=== PATIENT | male | born 1945 | race Caucasian/White ===

== ENCOUNTER → 2023-02-02 10:31 | Outpatient (BNVA) | payer MEDICARE, OTHER, SELFPAY | PROVIDERS: Visit Provider Nurse Practitioner | DX: R30.0 Dysuria (principal); N39.0 Urinary tract infection, site not specified | CPT/HCPCS: 80053; 81003; 85025; 87077; 87086; 87184 ==

== ENCOUNTER 2023-04-05 08:49 | Day surgery (SDC) | payer MEDICARE, OTHER, SELFPAY ==
[2023-04-05] VITALS (11 sets, daily range): BP systolic 119–168; BP diastolic 66–94; PULSE 55–78; RESP 16–20; TEMP 36.1–36.5; O2SAT 95–100; BMI 21.1
--- NOTE | 2023-04-05 09:12 | W.ED.GENADLT ---
HPI - General Adult General: Chief complaint: General Medical Stated complaint: having trouble swallowing Time Seen by Provider: 04/05/23 08:57 Source: patient Mode of arrival: ambulatory History of Present Illness: 77-year-old male who presents to the emergency room complaint difficulty swallowing. He has a history of dysphagia and from discussing what sounds like he may have had esophageal impactions in the past. He states that 3 days ago he was eating some deer meat and had some epigastric discomfort and pain he cannot eat or drink anything since then. Onset (ago): day(s) (3) Relieving factors: none Exacerbating factors: none Associated symptoms: Reports decreased appetite, malaise, nausea and vomiting; Deny chest pain, confusion, cough, diaphoresis, dyspnea, fevers/chills, headache(s), rash, palpitations, seizures, short of breath, syncope or weakness Treatments prior to arrival: none Review of Systems Const: Reports: fatigue and malaise; Denies: fever(s), chills or diaphoresis ENMT: Reports: odynophagia Card: Denies: chest pain, palpitations or syncope Resp: Denies: dyspnea GI: Reports: abdominal pain, nausea and vomiting; Denies: hematemesis or coffee ground emesis : Denies: dysuria, urinary frequency or urinary urgency Musc: Denies: neck pain or back pain Skin/Breast: Denies: rash Neuro: Denies: headache(s) or confusion PFS ED PFSH: Medical History Chronic pain of right knee Surgical History History of cataract surgery both eyes October 2022 History of cholecystectomy Family History Other Family history not known due to adoption Denies family history of Diabetes Dementia Psychiatric illness Cancer Hypertension Social History (Updated 02/02/23 @ 10:53 by GIOVANNY Walton) Smoking and tobacco/nicotine status: former use of tobacco/nicotine Second hand smoke exposure: No Alcohol intake: never Substance/Drug Use: never Adopted: Yes Caregiver/support person: No Lives independently: Yes Household members: spouse Housing: House Marital status: Number of children: 2 service: No Current occupational status: retired Pets and animals: Yes Pets & animals: farm animals Do you think of yourself as: Straight/Heterosexual Current gender identity: Male Physical Exam Const: COMMON NORMALS: no acute distress GENERAL APPEARANCE: cooperative and comfortable ORIENTATION/CONSCIOUSNESS: Yes awake, Yes oriented to person, Yes oriented to place and Yes oriented to time HENMT: COMMON NORMALS: normocephalic, atraumatic and hearing grossly normal bilaterally HEAD & SCALP: normocephalic and atraumatic Resp: COMMON NORMALS: normal respiratory effort, No retractions, No use of accessory muscles and clear to auscultation bilaterally AUSCULTATION: clear to auscultation bilaterally Cardio: COMMON NORMALS: regular rate, regular rhythm and No murmurs present (Cardio) RATE: regular rate RHYTHM: regular rhythm GI: COMMON NORMALS: Soft to palpation and No hepatosplenomegaly present AUSCULTATION: Yes normoactive bowel sounds PALPATION: Yes Soft to palpation, No Tenderness to palpation present (GI), No Guarding due to palpation present (GI) and Yes No hepatosplenomegaly present Extremity: COMMON NORMALS: normal to inspection, capillary refill normal, no clubbing, cyanosis or edema, no calf tenderness and no pedal edema Neuro: SENSORIUM/ORIENTATION: Yes oriented to person, Yes oriented to place and Yes oriented to time Skin: COMMON NORMALS: no rashes or lesions noted GENERAL SKIN EXAM: no rashes or lesions noted Course Vital Signs: Vital signs: Vital Signs Temperature 97.7 F 04/05/23 08:58 Pulse Rate 74 04/05/23 08:58 Respiratory Rate 18 04/05/23 08:58 Blood Pressure 168/94 04/05/23 08:58 Pulse Oximetry 96 04/05/23 08:58 Oxygen Delivery Me thod Room Air 04/05/23 08:58 MDM - General Adult Medical Decision Making Patient has esophageal food impaction for nearly [address] Snyder, patient placed in observation will go to GI lab for EGD Medical Records I reviewed the patient's medical records. Lab Data I reviewed the patient's lab results. 04/05/23 09:15 04/05/23 09:15 Laboratory Results WBC 9.28 10^3/uL (3.29-11.43) 04/05/23 09:15 RBC 4.85 10^6/uL (3.85-5.65) 04/05/23 09:15 Hgb 15.60 g/dL (11.27-16.99) 04/05/23 09:15 Hct 47.9 % (37-53) 04/05/23 09:15 MCV 98.8 fl (82-101) 04/05/23 09:15 MCH 32.2 pg (27-33) 04/05/23 09:15 MCHC 32.6 g/dL (30-55) 04/05/23 09:15 RDW 12.7 % (12.1-15.1) 04/05/23 09:15 Plt Count 243 10^3/cmm (157-399) 04/05/23 09:15 MPV 9.8 fL (7.4-10.4) 04/05/23 09:15 Neut % (Auto) 81.0 % 04/05/23 09:15 Lymph % (Auto) 12.1 % 04/05/23 09:15 [place] % (Auto) 5.1 % 04/05/23 09:15 Eos % (Auto) 1.1 % 04/05/23 09:15 Baso % (Auto) 0.4 % 04/05/23 09:15 Neut # (Auto) 7.52 10^3/uL (1.8-7.7) 04/05/23 09:15 Lymph # (Auto) 1.1 10^3/uL (0.8-4.8) 04/05/23 09:15 [place] # (Auto) 0.5 10^3/uL (0.2-0.9) 04/05/23 09:15 Eos # (Auto) 0.1 10^3/uL (0.0-0.8) 04/05/23 09:15 Baso # (Auto) 0.0 10^3/uL (0.0-0.1) 04/05/23 09:15 Nucleated RBC % (auto) 0 % 04/05/23 09:15 Nucleated RBCs # 0.0 /100WBC 04/05/23 09:15 Sodium 145 mmol/L (136-145) 04/05/23 09:15 Potassium 3.3 mmol/L (3.5-5.1) L 04/05/23 09:15 Chloride 104 mmol/L (98-107) 04/05/23 09:15 Carbon Dioxide 29 mmol/L (22-29) 04/05/23 09:15 Anion Gap 15.3 (5-19) 04/05/23 09:15 BUN 31 mg/dL (8-23) H 04/05/23 09:15 Creatinine 0.8 mg/dL (0.7-1.2) 04/05/23 09:15 GFR Calculation Not Reportable 04/05/23 09:15 Glucose 138 mg/dL (65-115) H 04/05/23 09:15 Calculated Osmolality 309 mOsm/kg (285-295) H 04/05/23 09:15 Calcium 9.9 mg/dL (8.5-10.5) 04/05/23 09:15 Total Bilirubin 0.4 mg/dL (0.15-1.2) 04/05/23 09:15 AST 124 U/L (0-40) H 04/05/23 09:15 ALT 45 U/L (0-41) H 04/05/23 09:15 Alkaline Phosphatase 88 U/L (40-130) 04/05/23 09:15 Total Protein 8.3 g/dL (6.6-8.7) 04/05/23 09:15 Albumin 4.8 g/dL (3.5-5.2) 04/05/23 09:15 Globulin 3.5 g/dL (1.3-4.6) 04/05/23 09:15 No radiology studies performed this visit Discharge Plan Discharge Patient Disposition: Placed in Observation Clinical Impression: Esophageal obstruction due to food impaction Condition: Stable Coding Level of Care Code ED 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
[2023-04-05 09:23] LABS: Basophils % 0.4 %; Eosinophils # 0.1 10^3/uL (0.0-0.8); Eosinophils % 1.1 %; Hematocrit 47.9 % (37-53); Lymphocytes # 1.1 10^3/uL (0.8-4.8); Lymphocytes % 12.1 %; Mean Corpuscular HGB Conc 32.6 g/dL (30-55); Mean Corpuscular Hemoglobin 32.2 pg (27-33); Mean Corpuscular Volume 98.8 fl (82-101); Mean Platelet Volume 9.8 fL (7.4-10.4); Monocytes # 0.5 10^3/uL (0.2-0.9); Monocytes % 5.1 %; Neutrophils # 7.52 10^3/uL (1.8-7.7); Nucleated Red Blood Cells % 0 %; Platelet Count 243 10^3/cmm (157-399); Red Blood Count 4.85 10^6/uL (3.85-5.65); Red Cell Distribution Width 12.7 % (12.1-15.1); White Blood Count 9.28 10^3/uL (3.29-11.43)
[2023-04-05 09:46] LABS: Alanine Aminotransferase 45 U/L (0-41); Albumin Level 4.8 g/dL (3.5-5.2); Alkaline Phosphatase 88 U/L (40-130); Anion Gap 15.3 (5-19); Aspartate Amino Transferase 124 U/L (0-40); Blood Urea Nitrogen 31 mg/dL (8-23); Calcium 9.9 mg/dL (8.5-10.5); Carbon Dioxide 29 mmol/L (22-29); Chloride 104 mmol/L (98-107); Globulin 3.5 g/dL (1.3-4.6); Glucose 138 mg/dL (65-115); Osmolality Calculated 309 mOsm/kg (285-295); Potassium 3.3 mmol/L (3.5-5.1); Sodium 145 mmol/L (136-145); Total Bilirubin 0.4 mg/dL (0.15-1.2); Total Protein 8.3 g/dL (6.6-8.7)
[2023-04-05] MEDS: sodium chloride 0.9% 1,000 ML 999 ML IV (10:08)
[2023-04-05] MEDS: sodium chloride 0.9% 1,000 ML 30 ML IV (10:44)
--- NOTE | 2023-04-05 10:47 | P.CONIM_ITS ---
Providers/Reason For Consult Consulting Physician/Specialty*: General surgery Reason for Consult*: Esophageal foreign body Attending Physician: Mikey Snyder MD Primary Care Provider: Abrahan Toribio DO History of Present Illness History of Present Illness Huy Hidalgo is a 77 year old male who presents to the emergency department due to esophageal foreign body. Patient was eating deer meat on Wednesday at this moment he noticed he choked and after this he had a sensation of foreign body in the esophagus and has not been able to drink water or swallow solids. Per p atient report he has never had a previous esophageal food impaction but has been having difficulty swallowing for quite a while now. Review of Systems General: Reports: 10 or more systems reviewed and unremarkable except in HPI and below Medications/Allergies Home Medications Medication Instructions Recorded Confirmed Last Taken Type Echinacea purpurea extract 125 mg 125 mg PO TID 04/05/23 04/05/23 Unknown History tablet (echinacea) alpha lipoic acid 100 mg capsule 100 mg PO DAILY 04/05/23 04/05/23 Unknown History ascorbic acid (vitamin C) 500 mg 500 mg PO DAILY 04/05/23 04/05/23 Unknown History tablet (Vitamin C) garlic 100 mg tablet 100 mg PO DAILY 04/05/23 04/05/23 Unknown History wdiobklh-lxikjycb-cspzt acid 400 1 tab PO DAILY 04/05/23 04/05/23 Unknown History mcg-vit K 20 mcg-lycop 300 mcg tablet vit C 250 mg-vit E 90 mg-zinc 40 1 tab PO BID 04/05/23 04/05/23 Unknown History mg-copper 1 yi-qbudoc-ttcrvw capsule (PreserVision AREDS-2) vitamin B complex 1 tab PO DAILY 04/05/23 04/05/23 Unknown History vitamin B12 0.5 mg-folic acid 1 mg 1 tab PO DAILY 04/05/23 04/05/23 Unknown History tablet vitamin E 268 mg (400 unit) capsule 268 mg PO DAILY 04/05/23 04/05/23 Unknown History Allergies Allergy/AdvReac Type Severity Reaction Status Date / Time No Known Allergies Allergy Verified 04/05/23 08:58 Current Medications Generic Name Dose Route Start Last Admin Trade Name Freq PRN Reason Stop Dose Admin Sodium Chloride 1,000 mls @ 30 mls/hr 04/05/23 10:45 04/05/23 10:44 Sodium Chloride 0.9% IV 04/06/23 10:44 30 mls/hr .Q24H GUNNAR Administration PFSH Acute PFSH: Medical History Chronic pain of right knee Surgical History History of cataract surgery both eyes October 2022 History of cholecystectomy Family History Other Family history not known due to adoption Denies family history of Diabetes Dementia Psychiatric illness Cancer Hypertension Social History (Updated 02/02/23 @ 10:53 by GIOVANNY Walton) Smoking and tobacco/nicotine status: former use of tobacco/nicotine Second hand smoke exposure: No Alcohol intake: never Substance/Drug Use: never Adopted: Yes Caregiver/support person: No Lives independently: Yes Household members: spouse Housing: House Marital status: Number of children: 2 service: No Current occupational status: retired Pets and animals: Yes Pets & animals: farm animals Do you think of yourself as: Straight/Heterosexual Current gender identity: Male Vitals/I&O/Wt Last Vital Signs Temp 97.2 F L 04/05/23 10:41 Pulse 70 04/05/23 10:41 Resp 18 04/05/23 10:41 BP 161/74 04/05/23 10:41 Pulse Ox 96 04/05/23 10:41 O2 Del Method Room Air 04/05/23 10:41 04/04/23 04/05/23 04/05/23 22:59 06:59 14:59 Intake Total 100 / 100 Balance 100 / 100 Weight last 48 hrs Weight 156 lb Physical Exam Narrative: General : Patient is well developed , no acute distress, oriented x3 Head : Normal cephalic, a-traumatic. Nose : Mucous membranes are without erythema. Lungs : Equal chest rise bilaterally, no use of accessory muscles, trachea is midline. CV : Rate and rhythm are normal. Abdomen : Soft, ND, NT, no g/r/m Extremities : No edema. Upper extremities are normal bilaterally. Back : non-tender to palpation, no CVA tenderness. Data 04/05/23 09:15 04/05/23 09:15 A&P Assessment and plan (1) Esophageal obstruction due to food impaction: Plan After complete history, physical examination and review of all available clinical data the following is my assessment. I think patient will benefit from upper endoscopy with removal of esophageal foreign body, I have discussed all the risk and benefits of the endoscopy with the patient including the damage to the teeth surrounding structures of the mouth and pharynx and an increased risk of perforation of the esophagus, duodenum or stomach. I have explained that in the case of perforation patient will require urgent surgical intervention and possible transfer to higher level of care. Patient agrees with the risks and wishes to proceed. Procedure will be booked for the next available endoscopy slot. Coding Level of Care Code [facility] Esophageal obstruction due to food impaction T18.128A; W44.F3XA
--- NOTE | 2023-04-05 10:51 | ANES.PREANE2 ---
Pre-Anesthetic Assessment Height/Weight: Height 1.83 m Weight 70.76 kg Temp Pulse Resp BP Pulse Ox O2 Del Method 97.2 F L 70 18 161/74 96 Room Air 04/05/23 10:41 04/05/23 10:41 04/05/23 10:41 04/05/23 10:41 04/05/23 10:41 04/05/23 10:41 Operation Date: 04/05/23 11:45 Proposed Procedures p EGD WITH FOREIGN BODY REMOVAL(Not Applicable) - Mikey Snyder MD Familial anesthetic complications: none Was Beta Eveline taken within 24 hours: N/A Last intake: Food bolus Social No alcohol and No tobacco Exam alert, oriented x 3, clear to auscultation bilaterally and regular rate & rhythm Airway Mallampati: Class I Dentition: full Anesthetic Plan ASA status: 1 Anesthesia: General Risk of > 500 ml blood loss (7ml/kg in children): No Medications/Allergies Home Medications Medication Instructions Recorded Confirmed Last Taken Type Echinacea purpurea extract 125 mg 125 mg PO TID 04/05/23 04/05/23 Unknown History tablet (echinacea) alpha lipoic acid 100 mg capsule 100 mg PO DAILY 04/05/23 04/05/23 Unknown History ascorbic acid (vitamin C) 500 mg 500 mg PO DAILY 04/05/23 04/05/23 Unknown History tablet (Vitamin C) garlic 100 mg tablet 100 mg PO DAILY 04/05/23 04/05/23 Unknown History wrgqylvi-easmcfpw-lmltk acid 400 1 tab PO DAILY 04/05/23 04/05/23 Unknown History mcg-vit K 20 mcg-lycop 300 mcg tablet vit C 250 mg-vit E 90 mg-zinc 40 1 tab PO BID 04/05/23 04/05/23 Unknown History mg-copper 1 oq-jqxsrh-gsapbj capsule (PreserVision AREDS-2) vitamin B complex 1 tab PO DAILY 04/05/23 04/05/23 Unknown History vitamin B12 0.5 mg-folic acid 1 mg 1 tab PO DAILY 04/05/23 04/05/23 Unknown History tablet vitamin E 268 mg (400 unit) capsule 268 mg PO DAILY 04/05/23 04/05/23 Unknown History Allergies Allergy/AdvReac Type Severity Reaction Status Date / Time No Known Allergies Allergy Verified 04/05/23 08:58 Current Medications Generic Name Dose Route Start Last Admin Trade Name Sebas PRN Reason Stop Dose Admin Sodium Chloride 1,000 mls @ 30 mls/hr 04/05/23 10:45 04/05/23 10:44 Sodium Chloride 0.9% IV 04/06/23 10:44 30 mls/hr .Q24H GUNNAR Administration PFSH Anesthesia Medical History Chronic pain of right knee Surgical History History of cataract surgery both eyes October 2022 History of cholecystectomy Family History Other Family history not known due to adoption Denies family history of Diabetes Dementia Psychiatric illness Cancer Hypertension Social History (Updated 02/02/23 @ 10:53 by GIOVANNY Walton) Smoking and tobacco/nicotine status: former use of tobacco/nicotine Second hand smoke exposure: No Alcohol intake: never Substance/Drug Use: never Adopted: Yes Caregiver/support person: No Lives independently: Yes Household members: spouse Housing: House Marital status: Number of children: 2 service: No Current occupational status: retired Pets and animals: Yes Pets & animals: farm animals Do you think of yourself as: Straight/Heterosexual Current gender identity: Male Data Anesthesia 04/05/23 09:15 04/05/23 09:15 Short CBC 04/05/23 Range/Units 09:15 WBC 9.28 (3.29-11.43) 10^3/uL Hgb 15.60 (11.27-16.99) g/dL Hct 47.9 (37-53) % MCV 98.8 (82-101) fl Plt Count 243 (157-399) 10^3/cmm Neut % (Auto) 81.0 % Neut # (Auto) 7.52 (1.8-7.7) 10^3/uL BMP 04/05/23 09:15 Sodium 145 Potassium 3.3 L Chloride 104 Carbon Dioxide 29 BUN 31 H Creatinine 0.8 Glucose 138 H Calcium 9.9 Liver Function 04/05/23 Range/Units 09:15 Total Bilirubin 0.4 (0.15-1.2) mg/dL AST 124 H (0-40) U/L ALT 45 H (0-41) U/L Alkaline Phosphatase 88 (40-130) U/L Albumin 4.8 (3.5-5.2) g/dL Cardiac Studies: No Data to Display
--- NOTE | 2023-04-05 13:25 | ANE.PACU2 ---
Inpatient post-anesthesia follow up: Airway intact: Yes Vital signs: Temperature 97.0 F Pulse Rate 66 Respiratory Rate 16 Blood Pressure 141/66 Pulse Oximetry 96 Oxygen Delivery Me thod Room Air Oxygen Flow Rate 5 Fraction of Inspir ed Oxygen Hydration adequate: Yes Nausea and vomiting: No Pain level: 1 Mental status: Baseline
== END 2023-04-05 13:22 | disposition home or self-care (01) ==
LOC: ER 10:11 → GILAB 10:21
PROVIDERS: Emergency Provider Family Medicine; Visit Provider Surgery
PROC: 0DJ08ZZ Inspection of Upper Intestinal Tract, Via Natural or Artificial Opening Endoscopic (ICD-10-PCS; CPT 43235; principal; 2023-04-05 11:45)
DX: T18.128A Food in esophagus causing other injury, initial encounter (principal); Z87.891 Personal history of nicotine dependence; K29.50 Unspecified chronic gastritis without bleeding; K44.9 Diaphragmatic hernia without obstruction or gangrene
CPT/HCPCS: 36415; 43239; 80053; 85025; 88305; 88342; J0330; J1100; J2405; J2704; J7030

== ENCOUNTER → 2023-04-13 09:00 | Outpatient (BNVA) | payer MEDICARE, OTHER, SELFPAY | PROVIDERS: Visit Provider Surgery | DX: Z09 Encounter for follow-up examination after completed treatment for conditions other than malignant neoplasm (principal) | CPT/HCPCS: 99214 ==

== ENCOUNTER → 2024-06-05 11:22 | Outpatient (BNVA) | payer OTHER, MEDICARE, SELFPAY | PROVIDERS: PCP Nurse Practitioner; Visit Provider Nurse Practitioner | DX: M51.369 Other intervertebral disc degeneration, lumbar region without mention of lumbar back pain or lower extremity pain (principal); M47.896 Other spondylosis, lumbar region | CPT/HCPCS: 72100; 72202 ==

== ENCOUNTER → 2024-06-14 08:35 | Outpatient (BNVA) | payer OTHER, MEDICARE, SELFPAY | PROVIDERS: PCP Nurse Practitioner; Visit Provider Clinical Nurse Specialist Adult Health | DX: M54.41 Lumbago with sciatica, right side (principal); G89.29 Other chronic pain; Z00.00 Encounter for general adult medical examination without abnormal findings; Z79.899 Other long term (current) drug therapy | CPT/HCPCS: 80053; 85025 ==

== ENCOUNTER 2024-07-06 10:50 | Outpatient (CLI) | payer MEDICARE, OTHER, SELFPAY ==
--- NOTE | 2024-07-06 11:00 | MR_ITS ---
WS: [id number] MRI LUMBAR SPINE NONCONTRAST HISTORY: M54.16 - Radiculopathy, lumbar region COMPARISON: None available. TECHNIQUE: Sagittal and axial multisequence imaging is submitted. Advanced cervical and thoracic spondylosis. Disc spaces are narrowed with osteophytosis. No cord compression. Curvature and increased lumbar lordosis. L4 anterolisthesis by 5.2 mm. 2 to 3 mm retrolisthesis of L1, L2 and L3. Disc spaces are significantly narrowed. Complete loss of the disc at T12-L1. Chronic endplate changes with no acute fracture or marrow edema. Conus terminates normally at L1-2 disc level. T12-L1: Central disc protrusion with annular fissure slightly contacting the ventral thecal sac. L1-L2: Diffuse annular disc bulging with retrolisthesis of L1. Effacement of ventral CSF. Disc contacts the ventral thecal sac and extends into the subarticular recesses. Mild contact on the traversing L2 nerve roots. Mild bilateral subarticular recess and foraminal stenosis with facet arthritis. L2-L3: Diffuse annular disc bulging with a LEFT paracentral disc protrusion. Moderate facet joint arthritis. Mild bilateral subarticular recess and moderate foraminal stenosis. L3-L4: Diffuse annular disc bulging encroaching upon the ventral thecal sac and subarticular recesses. Disc osteophyte disease encroaching into the subarticular recesses and foramina. Moderate central, bilateral subarticular recess and foraminal stenosis. There is contact on the traversing L4 nerve roots by disc and osteophyte disease. L4-L5: Marked annular disc bulging with severe ligamentum flavum and facet arthritis. Moderate to severe central with bilateral subarticular recess and mild foraminal stenosis. Disc contacts the traversing L5 nerve roots. L5-S1: Osteophytic ridging with annular disc bulging. Marked facet arthritis. No central stenosis. Mild bilateral foraminal stenosis and mild subarticular recess encroachment. Paravertebral soft tissues are normal. MR/MR lumbar spine wo con* [id number] IMPRESSION: 1. 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 2. L4 anterolisthesis by 5.2 mm. 3. T12-L1: Central disc protrusion contacting the ventral thecal sac. 4. L4-5: Moderate to severe central with bilateral subarticular recess and mil d foraminal stenosis. Disc contacts the traversing L5 nerve roots. 5. L5-S1: Mild bilateral and subarticular recess stenosis. 6. L3-4: Moderate central, bilateral subarticular recess and foraminal stenosi s due to disc and osteophyte disease. Contact on the L4 nerve roots. 7. L2-3: Moderate bilateral foraminal stenosis and mild subarticular recess st enosis. 8. L1-2: Mild bilateral subarticular recess and foraminal stenosis.
== END 2024-07-06 10:51 | disposition home or self-care (01) ==
PROVIDERS: PCP Clinical Nurse Specialist Adult Health; Visit Provider Clinical Nurse Specialist Adult Health
DX: M54.16 Radiculopathy, lumbar region (principal); M54.18 Radiculopathy, sacral and sacrococcygeal region; M50.30 Other cervical disc degeneration, unspecified cervical region; M51.34 Other intervertebral disc degeneration, thoracic region; M51.369 Other intervertebral disc degeneration, lumbar region without mention of lumbar back pain or lower extremity pain; M43.16 Spondylolisthesis, lumbar region; M51.25 Other intervertebral disc displacement, thoracolumbar region; M48.061 Spinal stenosis, lumbar region without neurogenic claudication; R93.7 Abnormal findings on diagnostic imaging of other parts of musculoskeletal system; M48.07 Spinal stenosis, lumbosacral region; M25.78 Osteophyte, vertebrae; M47.892 Other spondylosis, cervical region; M47.894 Other spondylosis, thoracic region; M40.46 Postural lordosis, lumbar region; M47.896 Other spondylosis, lumbar region; M51.379 Other intervertebral disc degeneration, lumbosacral region without mention of lumbar back pain or lower extremity pain; M47.897 Other spondylosis, lumbosacral region; M51.26 Other intervertebral disc displacement, lumbar region
CPT/HCPCS: 72148

== ENCOUNTER 2024-07-08 06:33 | Outpatient (RCR) | payer MEDICARE, OTHER, SELFPAY | END 2024-08-07 23:55 | disposition home or self-care (01) | LOC: APT 06:33 | PROVIDERS: PCP Clinical Nurse Specialist Adult Health; Visit Provider Nurse Practitioner Family | DX: M54.16 Radiculopathy, lumbar region (principal) | CPT/HCPCS: 97110; 97161 ==

== ENCOUNTER → 2024-07-18 13:10 | Outpatient (BNVA) | payer MEDICARE, OTHER, SELFPAY | PROVIDERS: PCP Clinical Nurse Specialist Adult Health; Visit Provider Orthopaedic Surgery | DX: M43.16 Spondylolisthesis, lumbar region (principal); M47.816 Spondylosis without myelopathy or radiculopathy, lumbar region; M54.18 Radiculopathy, sacral and sacrococcygeal region; M54.16 Radiculopathy, lumbar region; M54.41 Lumbago with sciatica, right side; G89.29 Other chronic pain | CPT/HCPCS: 72110; 99204 ==

== ENCOUNTER → 2024-07-31 10:51 | Outpatient (BNVA) | payer MEDICARE, OTHER, SELFPAY | PROVIDERS: PCP Clinical Nurse Specialist Adult Health; Referring Provider Orthopaedic Surgery; Visit Provider Nurse Practitioner Family | DX: M54.16 Radiculopathy, lumbar region (principal) | CPT/HCPCS: 99214 ==

== ENCOUNTER 2024-08-08 06:30 | Outpatient (RCR) | payer MEDICARE, OTHER, SELFPAY | END 2024-09-06 23:59 | disposition home or self-care (01) | LOC: APT 06:30 | PROVIDERS: PCP Clinical Nurse Specialist Adult Health; Visit Provider Nurse Practitioner Family | DX: M54.16 Radiculopathy, lumbar region (principal) | CPT/HCPCS: 97110; 97530 ==

== ENCOUNTER → 2024-09-18 12:53 | Outpatient (BNVA) | payer MEDICARE, OTHER, SELFPAY | PROVIDERS: PCP Clinical Nurse Specialist Adult Health; Visit Provider Nurse Practitioner Family | DX: M54.16 Radiculopathy, lumbar region (principal) | CPT/HCPCS: 99214 ==

== ENCOUNTER → 2024-09-25 11:32 | Outpatient (BNVA) | payer MEDICARE, OTHER, SELFPAY | PROVIDERS: PCP Clinical Nurse Specialist Adult Health; Visit Provider Nurse Practitioner Family | DX: M79.18 Myalgia, other site (principal); M54.16 Radiculopathy, lumbar region | CPT/HCPCS: 20553; 99214; J1010; J3490 ==

== ENCOUNTER → 2024-10-17 08:25 | Outpatient (BNVA) | payer MEDICARE, OTHER, SELFPAY | PROVIDERS: PCP Clinical Nurse Specialist Adult Health; Visit Provider Nurse Practitioner Family | DX: M54.16 Radiculopathy, lumbar region (principal) | CPT/HCPCS: 99214 ==

== ENCOUNTER → 2024-10-24 10:17 | Outpatient (BNVA) | payer MEDICARE, OTHER, SELFPAY | PROVIDERS: PCP Clinical Nurse Specialist Adult Health; Visit Provider Orthopaedic Surgery | DX: M43.16 Spondylolisthesis, lumbar region (principal); M54.16 Radiculopathy, lumbar region | CPT/HCPCS: 80053; 81001; 85025; 99214 ==

== ENCOUNTER → 2024-11-15 08:59 | Outpatient (BNVA) | payer MEDICARE, OTHER, SELFPAY | PROVIDERS: PCP Clinical Nurse Specialist Adult Health; Visit Provider Family Medicine | DX: Z01.818 Encounter for other preprocedural examination (principal); I44.4 Left anterior fascicular block | CPT/HCPCS: 93005 ==

== ENCOUNTER 2024-11-17 09:14 | Day surgery (SDC) | payer MEDICARE, OTHER, SELFPAY ==
[2024-11-17] VITALS (10 sets, daily range): BP systolic 123–150; BP diastolic 53–91; PULSE 70–79; RESP 13–18; TEMP 36.1–37.1; O2SAT 92–97; BMI 26.7
--- NOTE | 2024-11-17 08:09 | ANES.PREANE2 ---
Pre-Anesthetic Assessment Height/Weight: Height 6 ft Preop Diagnosis: Spondylolisthesis at L4-L5 Operation Date: 11/17/24 08:40 Proposed Procedures p Lumbar Spine Decompression Lumbar Decompression(Not Applicable) - Cody Luna DO Was Beta Eveline taken within 24 hours: N/A Was Clonidine taken within 24 hours: N/A Social No alcohol and No tobacco Exam alert and oriented x 3 Airway Submandibular: within normal limits Cervical ROM: within normal limits Mallampati: Class II Dentition: false Comments: Comments: States that his false teeth are glued in and will not come out Anesthetic Plan ASA status: 2 Anesthesia: General Other: No prior issues with anesthesia NPO since yesterday evening Denies any cardiac or pulmonary issues Ambulates with a walker Labs 10/24/2024 reviewed and acceptable for procedure today 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 Plan for GETA Medications/Allergies Home Medications ?Medication ?Instructions ?Recorded ?Confirmed ?Last Taken ?Type ascorbate calcium (vitamin C) 500 500 mg PO DAILY 06/14/24 11/17/24 11/16/24 History mg tablet garlic extract 600 mg tablet 600 mg PO DAILY 06/14/24 11/17/24 11/16/24 History lysine 500 mg tablet (L-Lysine) 500 mg PO DAILY 06/14/24 11/17/24 11/16/24 History mecobalamin (vitamin B12) 500 mcg 500 mcg PO DAILY 06/14/24 11/17/24 11/16/24 History chewable tablet multivitamin 1 tab PO DAILY 06/14/24 11/17/24 11/16/24 History omega 1-ozn-xxz-fish oil 100 100 cap PO DAILY 06/14/24 11/17/24 11/16/24 History mg-160 mg-1,000 mg capsule (Fish Oil) turmeric 400 mg capsule 400 mg PO DAILY 06/14/24 11/17/24 11/16/24 History vitamin E 100 unit/0.25 mL oral 100 unit PO DAILY 06/14/24 11/17/24 11/16/24 History drops vitamins A,C,V-wsyt-tzvgxs 2,148 2 tab PO BID 06/14/24 11/17/24 11/16/24 History mcg-113 mg-45 mg-17.4 mg tablet (PreserVision AREDS) lidocaine 5 % topical patch 2 patch topical DAILY PRN back 10/17/24 11/17/24 11/16/24 Rx pain #30 ea topiramate 25 mg tablet (Topamax) 25 mg PO BID PRN nerve pain #60 10/17/24 11/17/24 11/16/24 Rx tabs Allergies Allergy/AdvReac Type Severity Reaction Status Date / Time No Known Allergies Allergy Verified 11/17/24 09:22 [facility] Anesthesia Medical History Neuropathy of both feet Low back pain Chronic pain of right knee Surgical History History of surgery on left wrist plate glass window cut that ended up in deep suturing. History of cataract surgery both eyes October 2022 History of cholecystectomy Family History Father CAD (coronary artery disease) Other Family history not known due to adoption Denies family history of Diabetes Dementia Psychiatric illness Cancer Hypertension Social History Smoking and tobacco/nicotine status: former use of tobacco/nicotine Second hand smoke exposure: No Alcohol intake: never Substance/Drug Use: never Adopted: Yes Caregiver/support person: No Lives independently: Yes Household members: spouse Housing: House Marital status: Number of children: 2 service: No Current occupational status: retired Pets and animals: Yes Pets & animals: farm animals Do you think of yourself as: Straight/Heterosexual Current gender identity: Male
--- NOTE | 2024-11-17 11:46 | W.PM.OPSUD ---
Surgery/Procedure H&P Update DATE OF PROCEDURE: November 17, 2024 DATE H&P PERFORMED: 10/24/24 H&P UPDATE INFORMATION: I have reviewed H&P completed within last 30 days, I have examined patient prior to procedure and No changes to prior documentation PREOP DIAGNOSIS: Spondylolisthesis at L4-L5 PLANNED PROCEDURE: Operation Date: 11/17/24 08:40 Proposed Procedures p Lumbar Spine Decompression Lumbar Decompression(Not Applicable) - Cody Luna DO
[2024-11-17] MEDS: ceFAZolin 2,000 mg SDV 2000 MG IVP (12:04)
--- NOTE | 2024-11-17 12:27 | PC.NURSE ---
Addendum entered by Betty Garcia RN 11/17/24 13:48: Dr. Luna notified of wounds. Original Note: Patient presents to OR with three large sores to medial buttocks. All non blanching Right upper buttocks is an open stage 1/2 decubitus ulcer measuring 1.5 length x1 width Lower right buttocks 1.75 length x1 width stage 1/2 Left buttock measures 3.75 length x1.5 width stage 1/2
[2024-11-17] MEDS: lidocaine-epi 1% 20 mL INJ INJECTION (13:32)
--- NOTE | 2024-11-17 13:54 | PM.OP ---
Operative Report Date of procedure: November 17, 2024 Pre-op diagnosis: Lumbar stenosis neurogenic claudication Post-op diagnosis: same Procedure done: 1. L3/4 laminectomy partial facetectomy 2. L4/5 laminectomy partial facetectomy Surgeon: Cody Luna DO Estimated blood loss (mL): 20 Procedure: 1. L3/4 laminectomy partial facetectomy 2. L4/5 laminectomy partial facetectomy Patient is brought to the operative suite. After undergoing anesthesia they are placed in the prone position. All areas of impingement are well padded. Patient is then prepped and draped in the normal sterile fashion. A skin incision is made over the L3/4 level. This is confirmed under c-arm guidance. A series of dilators are passed and the tubular retractor is docked on the L3 lamina. A bovie is used to clear the soft tissue off the lamina and the L 3/4 facet joint. A high speed chacorta is then used to perform the laminectomy and take down the medial aspect of the L 3/4 facet joint. A kerrison rongeure was then used to take down the remaining lamina and smooth the edge of the laminectomy up to the point where the ligamentum flavum attaches. Attention was then brought to the medial aspect of the facet joint. The remaining medial aspect of the superior and inferior aspect of the facet joint were taken down with the kerrison from the pedicle of L3 to L 4. The facet joint had significant hypertrophy. Attention was then brought to the Ligamentum Flavum. The ligament was taken down from the lamina of L3 to L4 and out medially to the remaining facet joint. The ligament was thick. The dura was then exposed. The dura was in good repair. The L3 nerve was then traced with a curette out the L3/4 foramen and found to be adequately decompressed. The L4 nerve was traced with a curette around the L4 pedicle. The lateral recess was opened with a kerrison helping to further decompress the L4 nerve. Wound is then irrigated copiously with saline and surgiflo is used to stop any bleeding. The tubular retractor is removed A skin incision is made over the L4/5 level. This is confirmed under c-arm guidance. A series of dilators are passed and the tubular retractor is docked on the L4 lamina. A bovie is used to clear the soft tissue off the lamina and the L 4/5 facet joint. A high speed chacorta is then used to perform the laminectomy and take down the medial aspect of the L 4/5 facet joint. A kerrison rongeure was then used to take down the remaining lamina and smooth the edge of the laminectomy up to the point where the ligamentum flavum attaches. Attention was then brought to the medial aspect of the facet joint. The remaining medial aspect of the superior and inferior aspect of the facet joint were taken down with the kerrison from the pedicle of L4 to L 5. The facet joint had significant hypertrophy. Attention was then brought to the Ligamentum Flavum. The ligament was taken down from the lamina of L4 to L5 and out medially to the remaining facet joint. The ligament was thick. The dura was then exposed. The dura was in good repair. The L4 nerve was then traced with a curette out the L4/5 foramen and found to be adequately decompressed. The L5 nerve was traced with a curette around the L5 pedicle. The lateral recess was opened with a kerrison helping to further decompress the L5 nerve. Wound is then irrigated copiously with saline and surgiflo is used to stop any bleeding. The tubular retractor is removed and the wound is closed with vicryl and monocryl suture. Steri strips were applied. A sterile dressing is then placed. Patient was then placed in the supine position and transferred to the PACU in stable condition.
--- NOTE | 2024-11-17 14:01 | XR_ITS ---
WS: [id number] Exam: XR lumbar spine 2-3V* [id number] Date/Time of Exam: 11/17/2024 2:01 PM Reason For Exam: OR PICS Limited anterior posterior C-arm images of the lower lumbar spine are submitted. The images were obtained for preoperative localization purposes.
--- NOTE | 2024-11-17 15:35 | ANE.PACU2 ---
Inpatient post-anesthesia follow up: Airway intact: Yes Vital signs: Temperature 97.8 F Pulse Rate 70 Respiratory Rate 18 Blood Pressure 135/76 Pulse Oximetry 96 Oxygen Delivery Me thod Room Air Oxygen Flow Rate Fraction of Inspir ed Oxygen Hydration adequate: Yes Nausea and vomiting: No Pain level: 1 Mental status: Baseline
== END 2024-11-17 15:36 | disposition home or self-care (01) ==
PROVIDERS: PCP Clinical Nurse Specialist Adult Health; Visit Provider Orthopaedic Surgery
PROC: (CPT 63005; principal; 2024-11-17 08:30)
DX: M48.062 Spinal stenosis, lumbar region with neurogenic claudication (principal); G62.9 Polyneuropathy, unspecified; Z87.891 Personal history of nicotine dependence
CPT/HCPCS: 63047; 63048; 72100; J0131; J0690; J1100; J1885; J2250; J2405; J2704; J3010; J3490; J7030; J9999

== ENCOUNTER → 2024-11-30 13:52 | Outpatient (BNVA) | payer MEDICARE, OTHER, SELFPAY | PROVIDERS: PCP Clinical Nurse Specialist Adult Health; Visit Provider Orthopaedic Surgery | DX: Z98.890 Other specified postprocedural states (principal) | CPT/HCPCS: 99024 ==

== ENCOUNTER → 2024-12-28 13:44 | Outpatient (BNVA) | payer MEDICARE, OTHER, SELFPAY | PROVIDERS: PCP Clinical Nurse Specialist Adult Health; Visit Provider Orthopaedic Surgery | DX: Z98.890 Other specified postprocedural states (principal) | CPT/HCPCS: 99024 ==

== ENCOUNTER → 2025-01-24 09:30 | Outpatient (BNVA) | payer MEDICARE, OTHER, SELFPAY | PROVIDERS: PCP Clinical Nurse Specialist Adult Health; Visit Provider Specialist | DX: M17.11 Unilateral primary osteoarthritis, right knee (principal); M21.161 Varus deformity, not elsewhere classified, right knee | CPT/HCPCS: 20610; 73560; 73565; 99204; J7318 ==

== ENCOUNTER → 2025-02-08 10:19 | Outpatient (BNVA) | payer MEDICARE, OTHER, SELFPAY | PROVIDERS: PCP Clinical Nurse Specialist Adult Health; Visit Provider Orthopaedic Surgery | DX: Z98.890 Other specified postprocedural states (principal) | CPT/HCPCS: 99024 ==

== ENCOUNTER 2025-03-07 09:56 | Outpatient (RCR) | payer MEDICARE, OTHER, SELFPAY | END 2025-03-09 23:59 | disposition home or self-care (01) | LOC: APT 09:56 | PROVIDERS: Visit Provider Orthopaedic Surgery | DX: Z98.890 Other specified postprocedural states (principal) | CPT/HCPCS: 97110; 97161; 97530 ==

== ENCOUNTER → 2025-03-29 10:02 | Outpatient (BNVA) | payer MEDICARE, OTHER, SELFPAY | PROVIDERS: Visit Provider Orthopaedic Surgery | DX: M54.16 Radiculopathy, lumbar region (principal); Z47.89 Encounter for other orthopedic aftercare | CPT/HCPCS: 99213 ==

== ENCOUNTER 2025-04-03 09:52 | Outpatient (RCR) | payer MEDICARE, OTHER, SELFPAY | END 2025-04-08 23:59 | disposition home or self-care (01) | LOC: APT 09:52 | PROVIDERS: Visit Provider Orthopaedic Surgery | DX: Z98.890 Other specified postprocedural states (principal) | CPT/HCPCS: 97110 ==

== ENCOUNTER 2025-04-10 13:06 | Outpatient (CLI) | payer MEDICARE, OTHER, SELFPAY ==
--- NOTE | 2025-04-10 13:45 | MR_ITS ---
WS: [id number] MRI LUMBAR SPINE NONCONTRAST HISTORY: lumbar pain, lumbar spine surgery 11/17/2024 COMPARISON: 07/06/2024 TECHNIQUE: Sagittal and axial multisequence imaging is submitted. Cervical and thoracic disc space narrowing and osteophytosis and disc bulging. Similar to the prior study. Scoliosis with marked increase in the lumbar lordosis. Disc spaces are all narrowed and desiccated. Severe disc space narrowing at T12-L1 with bone upon bone. No acute fractures or marrow edema. Conus terminates normally at L1-2 disc level. L4 anterolisthesis by 7.8 mm. L1 retrolisthesis by 5.7 mm. L1-L2: Diffuse disc bulging encroaching upon the ventral thecal sac. There is greater disc contact on the ventral thecal sac extending into the subarticular recesses than on the prior study. Moderate central, subarticular recess and bilateral foraminal stenosis. Stenosis has progressed since prior study. L2-L3: Mild annular disc bulging with disc contacting the traversing L3 nerve roots. Mild ligamentum flavum and facet arthritis. Mild bilateral subarticular recess and moderate foraminal stenosis is unchanged. L3-L4: Diffuse annular disc bulging with osteophytic ridging. LEFT hemilaminectomy defect with facetectomy. Moderate to severe bilateral foraminal stenosis. Mild progression of foraminal stenosis since the prior study. L4-L5: Diffuse disc bulging with marked ligamentum flavum and facet arthritis. Large LEFT hemilaminectomy defect with facetectomy. Improvement in central stenosis since the prior lumbar surgery. There is mild disc contact on the traversing L5 nerve roots. Mild to moderate bilateral foraminal stenosis is stable. L5-S1: Diffuse disc bulging with ligamentum flavum and facet arthritis. Mild bilateral foraminal stenosis. Mild subarticular recess encroachment. Paravertebral soft tissues are normal. MR/MR lumbar spine wo con* [id number] IMPRESSION: 1. Since the prior MRI of 07/06/2024 L3-4 and L4-5 LEFT laminectomies and facet ectomies. 2. Progression of foraminal stenosis at L3-4 since the prior exam. Now moderat e to severe bilateral foraminal stenosis. 3. Moderate central, subarticular recess and bilateral foraminal stenosis at L 1-2 with progression since the prior study. 4. Mild bilateral subarticular recess and moderate foraminal stenosis at L2-3. 5. Mild bilateral foraminal and subarticular recess stenosis at L5-S1, unchang ed. 6. L4 anterolisthesis by 7.8 mm has slightly increased since 07/06/2024. 7. L1 retrolisthesis by 5.7 mm has also slightly progressed since 07/06/2024.
== END 2025-04-10 13:07 | disposition home or self-care (01) ==
LOC: RAD 13:07
PROVIDERS: Visit Provider Orthopaedic Surgery
DX: Z98.890 Other specified postprocedural states (principal); M51.16 Intervertebral disc disorders with radiculopathy, lumbar region; M51.26 Other intervertebral disc displacement, lumbar region; M47.816 Spondylosis without myelopathy or radiculopathy, lumbar region; M48.061 Spinal stenosis, lumbar region without neurogenic claudication; M48.07 Spinal stenosis, lumbosacral region; M43.16 Spondylolisthesis, lumbar region
CPT/HCPCS: 72148

== ENCOUNTER → 2025-04-12 14:17 | Outpatient (BNVA) | payer MEDICARE, OTHER, SELFPAY | PROVIDERS: Visit Provider Orthopaedic Surgery | DX: M43.16 Spondylolisthesis, lumbar region (principal); M47.816 Spondylosis without myelopathy or radiculopathy, lumbar region; Z51.89 Encounter for other specified aftercare | CPT/HCPCS: 99214 ==

== ENCOUNTER → 2025-04-30 08:02 | Outpatient (BNVA) | payer MEDICARE, OTHER, SELFPAY | PROVIDERS: Referring Provider Orthopaedic Surgery; Visit Provider Nurse Practitioner Family | DX: M79.18 Myalgia, other site (principal); M54.16 Radiculopathy, lumbar region | CPT/HCPCS: 20553; 99214; J1010; J3490 ==

== ENCOUNTER → 2025-05-07 10:54 | Outpatient (BNVA) | payer MEDICARE, OTHER, SELFPAY | PROVIDERS: PCP Clinical Nurse Specialist Adult Health; Visit Provider Clinical Nurse Specialist Adult Health | DX: N30.00 Acute cystitis without hematuria (principal) | CPT/HCPCS: 81000; 87086 ==

== ENCOUNTER 2025-05-09 09:43 | Outpatient (RCR) | payer MEDICARE, OTHER, SELFPAY | END 2025-05-09 23:59 | disposition home or self-care (01) | LOC: APT 09:43 | PROVIDERS: Visit Provider Orthopaedic Surgery | DX: Z98.890 Other specified postprocedural states (principal) | CPT/HCPCS: 97110 ==